=== PATIENT | female | born 1955 | race Caucasian/White ===

== ENCOUNTER 2017-09-22 09:19 | Outpatient (CLI) | payer OTHER ==
--- NOTE | 2017-09-22 11:06 | Ultrasound Report ---
ULTRASOUND ABDOMEN COMPLETE INDICATION: Elevated LFTs. COMPARISON: None similar at this institution. FINDINGS: Abdominal sonography demonstrates diffuse hepatic echogenic coarsening with grossly preserved contours. No definite focal suspicious lesions or biliary dilatation, to the extent assessed. Right hepatic lobe approximately 18 cm in midclavicular length. Gallbladder surgically absent. Common bile duct is 3 mm. Patent portal vein. Homogenous spleen, approximately 7.4 cm in length. No ascites. Imaged pancreas grossly within normal limits. Unremarkable IVC. Nonaneurysmal abdominal aorta. No hydronephrosis with right kidney approximately 9.3 x 4.4 x 4.3 cm with cortical thickness of 1.2 cm while the left kidney is 9.4 x 5.4 x 4 cm with cortical thickness of 1.5 cm. CONCLUSION: Fatty liver and cholecystectomy without acute sonographic abnormality, as described. Please correlate. Thank you for the opportunity to participate in this patient's care.
== END 2017-09-22 09:20 | disposition home or self-care (01) ==
LOC: SPVWC 09:19
PROVIDERS: ATTEND Internal Medicine Gastroenterology
DX: K76.0 Fatty (change of) liver, not elsewhere classified (principal); R79.89 Other specified abnormal findings of blood chemistry; Z90.49 Acquired absence of other specified parts of digestive tract
CPT/HCPCS: 76700

== ENCOUNTER 2021-11-25 09:21 | Outpatient (CLI) | payer OTHER ==
[2021-11-25 12:42] LABS: Color,Urine Straw (Yellow)
[2021-11-25 12:43] LABS: Alanine Aminotransferase 31 units/L (7-56); Albumin 4.8 g/dL (3.9-5); BUN/Creatinine Ratio 18; Blood Urea Nitrogen 14 mg/dL (7-17); Calcium 9.8 mg/dL (8.4-10.2); Chol/HDL Ratio 4.23 %; HDL Cholesterol 51 mg/dL (40-59); Hemolysis Index 16; LDL Cholesterol,Direct 140 mg/dL (50-130)
[2021-11-25 12:44] LABS: RBC,Urine < 1.0 /HPF (0.0-6.0); WBC,Urine < 1.0 /HPF (0.0-6.0)
[2021-11-25 12:49] LABS: Basophils # (Auto) 0.1 K/mm3 (0.0-0.1); Basophils % (Auto) 0.8 % (0.0-1.8); Eosinophils # (Auto) 0.1 K/mm3 (0.0-0.4); Eosinophils % (Auto) 0.9 % (0.0-4.3); Hemoglobin 14.3 gm/dl (10.1-14.3); Lymphocytes # (Auto) 2.2 K/mm3 (1.2-5.4); Lymphocytes % (Auto) 35.1 % (13.4-35.0); Mean Corpuscular HGB Conc 33 % (30-34); Mean Corpuscular Volume 87 fl (79-97); Monocytes # (Auto) 0.4 K/mm3 (0.0-0.8); Platelet Count 245 K/mm3 (140-440); Red Blood Count 4.97 M/mm3 (3.65-5.03); Red Cell Distribution Width 14.2 % (13.2-15.2)
[2021-11-25 12:50] LABS: Bilirubin,Direct < 0.2 mg/dL (0-0.2)
== END 2021-11-25 09:22 | disposition home or self-care (01) ==
LOC: LABHHL 09:21
PROVIDERS: ATTEND Internal Medicine
DX: E55.9 Vitamin D deficiency, unspecified (principal); E78.5 Hyperlipidemia, unspecified; K76.0 Fatty (change of) liver, not elsewhere classified; E66.9 Obesity, unspecified; E04.1 Nontoxic single thyroid nodule; N39.0 Urinary tract infection, site not specified
CPT/HCPCS: 36415; 80048; 80061; 80076; 81001; 82306; 84443; 85025